=== PATIENT | female | born 1985 | race Caucasian/White ===

== ENCOUNTER → 2020-11-26 | Outpatient (CLI) | payer OTHER ==
[~2020-11-26] MED LIST: DOCUSATE SODIU250 MG PO; EQUATE SLEEP AID PO; HYDROCODONE-AC1 EACH PO; IBUPROFEN600 MG PO; TYLENOL325 MG PO
[2020-11-26 10:26] LABS: HEMOGLOBIN 12.9 gm/dl (12.3-15.3); RED BLOOD COUNT 5.1 M/UL (4.00-5.10); WHITE BLOOD COUNT 7.7 K/UL (4.5-11.0)
== END ==
LOC: OPSV2 09:21
PROVIDERS: Obstetrics & Gynecology
DX: Z01.812 Encounter for preprocedural laboratory examination (principal); N92.0 Excessive and frequent menstruation with regular cycle
CPT/HCPCS: 36415; 81001; 85025

== ENCOUNTER → 2020-12-03 | Day surgery (SDC) | payer OTHER | END | disposition home or self-care (01) | LOC: OR 07:06 | DX: N72 Inflammatory disease of cervix uteri (principal); N88.8 Other specified noninflammatory disorders of cervix uteri; K66.0 Peritoneal adhesions (postprocedural) (postinfection); Q51.3 Bicornate uterus; D64.9 Anemia, unspecified; K21.9 Gastro-esophageal reflux disease without esophagitis; E66.01 Morbid (severe) obesity due to excess calories; Z68.42 Body mass index [BMI] 45.0-49.9, adult; Z79.899 Other long term (current) drug therapy | CPT/HCPCS: 84703; C1769; J0690; J1100; J1170; J1885; J2001; J2250; J2405; J2550; J2704; J2710; J3010; J7120 ==